=== PATIENT | female | born 1960 | race Caucasian/White ===

== ENCOUNTER 2016-06-08 15:45 | Emergency (ER) | payer OTHER ==
--- NOTE | ~2016-06-08 | CR63 ---
[facility] A Service of [facility] [place] [place] RADIOLOGY TEXT RESULTS PATIENT: NEELA BALDWIN LOCATION: [facility] : 64 UNIT #: [id number] AGE: [address]: Lisy Sanchez APRN SEX: F ORDER DR: [id number] [facility] [address] [place], [place] [address] [id number] MR#: [id number] Acc #: [id number] NAME: NEELA BALDWIN : 1960 SEX: F STUDY DATE/TIME: 06/08/2016 14:57 UNIT: [facility] ROOM: STUDY DESCRIPTION: CR Chest 2 View Attending Physician: Lisy Sanchez A.P.R.N. Ordering Physician: Ed Esteban Elena M.D. Primary Care Physician: Antonio Goldberg M.D. MEDICAL IMAGING REPORT This report is preliminary unless electronic signature is present EXAM Chest, PA and lateral. DATE OF EXAM 06/08/2016 HISTORY Cough, shortness of breath chest congestion and wheezing for 1 week. Benign essential hypertension. Smoking history. FINDINGS The heart is normal in size. The lungs are clear. There are no pleural effusions. There is tortuosity of the thoracic aorta unchanged compared with 12/01/2015. IMPRESSION No active pulmonary disease. Dictated by... Kj Kong M.D. THIS IS AN ELECTRONICALLY VERIFIED REPORT Kj Kong M.D. at 06/09/2016 1:12 PM ALEXSANDER/justin TD: 06/08/2016 16:43 JOB #: [id number] MEDICAL IMAGING REPORT Page 1 of 1 COPY
[2016-06-08 15:09] LABS: INFLUENZA A NEG (NEG); INFLUENZA B NEG (NEG)
== END 2016-06-08 16:18 | disposition home or self-care (01) ==
LOC: CFTX 15:45
PROVIDERS: Nurse Practitioner
DX: J20.9 Acute bronchitis, unspecified (principal); I10 Essential (primary) hypertension; F17.210 Nicotine dependence, cigarettes, uncomplicated
CPT/HCPCS: 71020; 87804; 94640; 99284